=== PATIENT | male | born 1960 | race Caucasian/White ===

== ENCOUNTER 2019-01-20 05:11 | Emergency (ER) | payer MEDICAID ==
[~2019-01-20] VITALS: Ht 175.3 cm; Wt 64.5 kg
[2019-01-20 05:14] VITALS: BP 155/91
[2019-01-20] MEDS ORDERED: DIPH,PERTUSS(ACELL),TET VAC/PF 0.5 ML IM-VACC ONE ×2 (05:30→05:32)
[2019-01-20] MEDS ORDERED: NEOSPORIN OINT. PKT 1 PACKET ONE (05:32)
== END 2019-01-20 06:08 | disposition home or self-care (01) ==
LOC: ED 05:59
DX: S60.512A Abrasion of left hand, initial encounter (principal); S60.511A Abrasion of right hand, initial encounter; W18.30XA Fall on same level, unspecified, initial encounter; Y93.89 Activity, other specified; Y92.009 Unspecified place in unspecified non-institutional (private) residence as the place of occurrence of the external cause; Y99.8 Other external cause status
CPT/HCPCS: 90471; 90715; 99283

== ENCOUNTER 2019-03-13 08:15 | Emergency (ER) | payer MEDICAID ==
[~2019-03-13] VITALS: Ht 175.3 cm; Wt 66.0 kg
[2019-03-13 08:20] VITALS: BP 141/89
--- NOTE | 2019-03-13 08:31 | NUR ---
first contact with pt. DX with shingles a few weeks ago. Unable to get follow up with pcp. States continued pain(left back and leg), though shingles is improving. pt's aox4. resps even and unlabored.
--- NOTE | 2019-03-13 08:56 | NUR ---
Patient given discharge instructions and they have confirmed that they understand the instructions. Patient ambulatory with steady gait.
== END 2019-03-13 08:57 | disposition home or self-care (01) ==
LOC: ED 08:45
DX: B02.9 Zoster without complications (principal); I10 Essential (primary) hypertension; E78.5 Hyperlipidemia, unspecified; Z86.73 Personal history of transient ischemic attack (TIA), and cerebral infarction without residual deficits; Z79.899 Other long term (current) drug therapy; Z88.0 Allergy status to penicillin; Z88.8 Allergy status to other drugs, medicaments and biological substances; Z88.2 Allergy status to sulfonamides
CPT/HCPCS: 99282